=== PATIENT | male | born 1955 | race Native Hawaiian/Other Pacific Islander ===

== ENCOUNTER 2016-04-02 17:11 | Observation (INO) | payer OTHER ==
[~2016-04-02] VITALS: Ht 172.7 cm; Wt 118.6 kg
[~2016-04-02 17:11] MED LIST: ALBU90AE13 INH; ALLO300T23 PO; AMOX875T8 PO; BREO ELLIPTA 101 INH IN; CARDURA4 MG PO; LEVAQUIN750 MG PO; LOTENSIN HCT1 TA1 PO; METF500T PO; PANT40TA PO; SINGULAIR10 MG PO; ZESTRIL30 MG PO; [UNRECOGNIZED DRUG - CODE] PO
[2016-04-02 17:48] VITALS: BP 149/75; TEMP 97.8; Ht 172.7 cm; Wt 118.6 kg
[2016-04-02 17:56] LABS: PLATELET COUNT 285 K/uL (142-355)
[2016-04-02 18:12] LABS: POTASSIUM 3.8 mmol/L (3.6-5.2); SODIUM 137 mmol/L (136-145)
[2016-04-02 20:00] VITALS: BP 107/54; TEMP 98.1
[2016-04-02 21:52] LABS: PARTIAL THROMBOPLASTIN TIME 23.8 SECONDS (24.5-33.6)
[2016-04-02] MEDS ORDERED: RANITIDINE 150150 MG PO (23:37)
[2016-04-02] MEDS ORDERED: INVOKANA300 MG OR (23:37)
[2016-04-02] MEDS ORDERED: DIOVAN HCT160 MG/25 PO (23:38)
[2016-04-02] MEDS ORDERED: ALBU90AE13 INH (23:38)
[2016-04-02] MEDS ORDERED: [UNRECOGNIZED DRUG - OTHER] PO (23:44)
[2016-04-02] MEDS ORDERED: RANO500T PO (23:44)
[2016-04-02] MEDS ORDERED: TIOTROPIUM BROMIDE PO (23:44)
[2016-04-03] VITALS: BP 88/58; TEMP 98
[2016-04-03 04:00] VITALS: BP 82/49; TEMP 97.7
[2016-04-03 06:11] VITALS: BP 82/49; TEMP 97.7
[2016-04-03 08:04] VITALS: BP 120/75; TEMP 97.6
[2016-04-03 10:15] LABS: POTASSIUM 3.5 mmol/L (3.6-5.2); SODIUM 134 mmol/L (136-145)
[2016-04-03 10:48] LABS: PARTIAL THROMBOPLASTIN TIME 25.2 SECONDS (24.5-33.6)
[2016-04-03 10:51] LABS: PLATELET COUNT 243 K/uL (142-355)
[2016-04-03 12:00] VITALS: BP 126/84; TEMP 97.8
== END 2016-04-03 13:50 | disposition short-term general hospital (02) ==
LOC: MED/SURG 17:11
PROVIDERS: ADMIT Family Medicine
DX: R07.89 Other chest pain (principal); R06.02 Shortness of breath; R11.10 Vomiting, unspecified; E13.65 Other specified diabetes mellitus with hyperglycemia; J44.9 Chronic obstructive pulmonary disease, unspecified
CPT/HCPCS: 36415; 36591; 36600; 80053; 82550; 82805; 82948; 84484; 85027; 85610; 85730; 93005; 96367; 96372; 96374; 99220; G0378; G0379; J1650; J1815

== ENCOUNTER 2016-04-03 14:01 | Outpatient (CLI) | payer OTHER ==
[~2016-04-03 14:01] MED LIST changes: +DIOVAN HCT160 MG/25 PO; +INVOKANA300 MG OR; +RANITIDINE 150150 MG PO; +RANO500T PO; +TIOTROPIUM BROMIDE PO; +[UNRECOGNIZED DRUG - OTHER] PO
== END 2016-04-03 15:39 | disposition short-term general hospital (02) ==
LOC: AMB 14:01
DX: R07.89 Other chest pain (principal); R06.02 Shortness of breath; R11.10 Vomiting, unspecified; E13.65 Other specified diabetes mellitus with hyperglycemia; J44.9 Chronic obstructive pulmonary disease, unspecified
CPT/HCPCS: A0425; A0427

== ENCOUNTER 2017-01-21 15:24 | Observation (INO) | payer OTHER ==
[~2017-01-21] VITALS: Ht 157.5 cm; Wt 117.1 kg
[2017-01-21 16:17] VITALS: BP 148/91; TEMP 97.8; BMI 39.1
[2017-01-21 16:23] LABS: PLATELET COUNT 292 K/uL (142-355)
[2017-01-21 16:46] LABS: PARTIAL THROMBOPLASTIN TIME 23.4 SECONDS (24.5-33.6)
[2017-01-21] MEDS ORDERED: CETIRIZINE10 MG PO (16:56)
[2017-01-21] MEDS ORDERED: XYZAL ALLERGY 245 MG PO (16:57)
[2017-01-21] MEDS ORDERED: CARV3.12 PO (16:58)
[2017-01-21 17:01] LABS: POTASSIUM 3.6 mmol/L (3.6-5.2); SODIUM 137 mmol/L (136-145)
[2017-01-21 20:28] VITALS: BP 142/78; TEMP 98.1
[2017-01-22] VITALS (7 sets, daily range): BP systolic 116–136; BP diastolic 60–78; TEMP 97.5–99.7; Ht 157.5 cm; Wt 117.1 kg
[2017-01-22 08:29] LABS: PLATELET COUNT 260 K/uL (142-355)
[2017-01-22 08:42] LABS: POTASSIUM 3.8 mmol/L (3.6-5.2); SODIUM 138 mmol/L (136-145)
[2017-01-23] VITALS: BP 137/86; TEMP 97.6
[2017-01-23 04:00] VITALS: BP 103/65; TEMP 98.1
[2017-01-23 08:00] VITALS: BP 139/79; TEMP 97.5
[2017-01-23 12:27] VITALS: BP 168/90; TEMP 98.8
[2017-01-23 16:00] VITALS: TEMP 98.8
== END 2017-01-23 16:25 | disposition home or self-care (01) ==
LOC: MED/SURG 15:24
PROVIDERS: ADMIT Family Medicine
DX: J01.00 Acute maxillary sinusitis, unspecified (principal); J01.20 Acute ethmoidal sinusitis, unspecified; J44.1 Chronic obstructive pulmonary disease with (acute) exacerbation; E86.0 Dehydration; R06.09 Other forms of dyspnea; I10 Essential (primary) hypertension; R06.02 Shortness of breath; E13.65 Other specified diabetes mellitus with hyperglycemia; J01.81 Other acute recurrent sinusitis; R07.89 Other chest pain
CPT/HCPCS: 36415; 36591; 36600; 80053; 82550; 82805; 82948; 83735; 83880; 84484; 85027; 85610; 85730; 93005; 94760; 96365; 96366; 96367; 96372; 96374; 96375; 99220; G0378; G0379; J1815; J2930

== ENCOUNTER 2018-03-23 16:40 | Outpatient (CLI) | payer OTHER ==
[~2018-03-23 16:40] MED LIST changes: +CARV3.12 PO; +CETIRIZINE10 MG PO; +XYZAL ALLERGY 245 MG PO
== END 2018-03-23 19:39 | disposition home or self-care (01) ==
LOC: RAD 16:40
DX: J12.9 Viral pneumonia, unspecified (principal)

== ENCOUNTER 2018-12-23 12:10 | Outpatient (CLI) | payer OTHER ==
[2018-12-23 12:27] LABS: POTASSIUM 3.7 mmol/L (3.6-5.2)
== END 2018-12-23 21:30 | disposition home or self-care (01) ==
LOC: LABW 12:10
PROVIDERS: Nurse Practitioner Family
DX: R10.84 Generalized abdominal pain (principal)
CPT/HCPCS: 36415; 80053; 82150; 83690

== ENCOUNTER 2019-08-03 10:19 | Outpatient (CLI) | payer OTHER ==
[2019-08-03 10:55] LABS: PLATELET COUNT 247 K/uL (142-355)
== END 2019-08-03 18:58 | disposition home or self-care (01) ==
LOC: LABW 10:19
PROVIDERS: Nurse Practitioner Family
DX: E78.2 Mixed hyperlipidemia (principal); R53.83 Other fatigue; Z12.11 Encounter for screening for malignant neoplasm of colon; E13.65 Other specified diabetes mellitus with hyperglycemia; R05 Cough
CPT/HCPCS: 36415; 80053; 80061; 82306; 82607; 83036; 83880; 84153; 84443; 85027

== ENCOUNTER 2019-08-18 07:47 | Outpatient (CLI) | payer OTHER | END 2019-08-18 18:54 | disposition home or self-care (01) | LOC: CT 07:47 | DX: R06.00 Dyspnea, unspecified (principal) ==

== ENCOUNTER → 2019-08-24 | Outpatient (CLI) | payer OTHER | LOC: RAD 13:02 | DX: J18.9 Pneumonia, unspecified organism (principal) ==

== ENCOUNTER 2019-10-23 15:09 | Outpatient (CLI) | payer OTHER ==
[2019-10-23 15:45] LABS: PLATELET COUNT 268 K/uL (142-355)
== END 2019-10-23 21:31 | disposition home or self-care (01) ==
LOC: RAD 15:09
PROVIDERS: Nurse Practitioner Family
DX: R60.9 Edema, unspecified (principal)
CPT/HCPCS: 36415; 80053; 83880; 85027

== ENCOUNTER 2019-11-10 13:52 | Outpatient (CLI) | payer OTHER | END 2019-11-10 23:17 | disposition home or self-care (01) | LOC: RESP 13:52 | DX: R06.09 Other forms of dyspnea (principal) ==

== ENCOUNTER 2020-01-23 08:43 | Outpatient (CLI) | payer OTHER ==
[2020-01-23 09:17] LABS: PLATELET COUNT 326 K/uL (142-355)
== END 2020-01-23 22:33 | disposition home or self-care (01) ==
LOC: LABW 08:43
PROVIDERS: ATTEND Internal Medicine
DX: E11.9 Type 2 diabetes mellitus without complications (principal); I10 Essential (primary) hypertension; E66.09 Other obesity due to excess calories
CPT/HCPCS: 36415; 80053; 80061; 82043; 82570; 83036; 84439; 84443; 84681; 85027

== ENCOUNTER 2020-04-10 10:43 | Outpatient (CLI) | payer OTHER ==
[2020-04-10 11:35] LABS: POTASSIUM 4.1 mmol/L (3.6-5.2)
== END 2020-04-10 21:47 | disposition home or self-care (01) ==
LOC: LABW 10:43
PROVIDERS: ATTEND Internal Medicine Cardiovascular Disease
DX: R06.02 Shortness of breath (principal); Z79.899 Other long term (current) drug therapy
CPT/HCPCS: 36415; 80048; 83880

== ENCOUNTER 2020-05-14 14:29 | Outpatient (CLI) | payer OTHER ==
[2020-05-14 15:02] LABS: PLATELET COUNT 279 K/uL (142-355)
[2020-05-14 15:03] LABS: POTASSIUM 4.1 mmol/L (3.6-5.2)
== END 2020-05-14 19:27 | disposition home or self-care (01) ==
LOC: LABW 14:29
PROVIDERS: ATTEND Internal Medicine Cardiovascular Disease
DX: Z79.899 Other long term (current) drug therapy (principal)
CPT/HCPCS: 36415; 80053; 83880; 85027

== ENCOUNTER 2020-06-14 11:43 | Emergency (ER) | payer OTHER ==
[~2020-06-14] VITALS: Ht 170.2 cm; Wt 122.0 kg
[2020-06-14 13:40] VITALS: BP 125/72; TEMP 97.9
== END 2020-06-14 13:40 | disposition home or self-care (01) ==
LOC: ED 11:43
DX: S20.211A Contusion of right front wall of thorax, initial encounter (principal); M94.0 Chondrocostal junction syndrome [Tietze]; W10.1XXA Fall (on)(from) sidewalk curb, initial encounter; Y92.89 Other specified places as the place of occurrence of the external cause
CPT/HCPCS: 96372; 99282; J1885

== ENCOUNTER 2020-08-12 12:25 | Outpatient (CLI) | payer OTHER | END 2020-08-12 21:48 | disposition home or self-care (01) | LOC: RAD 12:25 | PROVIDERS: ATTEND Nurse Practitioner Family | DX: R05 Cough (principal) ==

== ENCOUNTER 2020-08-14 09:06 | Outpatient (CLI) | payer OTHER | END 2020-08-14 23:01 | disposition home or self-care (01) | LOC: CT 09:06 | PROVIDERS: ATTEND Nurse Practitioner Primary Care | DX: R10.9 Unspecified abdominal pain (principal) ==

== ENCOUNTER 2020-08-16 08:18 | Outpatient (CLI) | payer OTHER ==
[~2020-08-16] VITALS: Ht 172.7 cm; Wt 131.3 kg
== END 2020-08-16 18:56 | disposition home or self-care (01) ==
LOC: INF 08:18
PROVIDERS: ATTEND Family Medicine
DX: Z23 Encounter for immunization (principal); U07.1 COVID-19
CPT/HCPCS: 96365; Q0239; Q0245

== ENCOUNTER 2020-10-23 14:06 | Outpatient (CLI) | payer OTHER ==
[2020-10-23 15:22] LABS: POTASSIUM 3.6 mmol/L (3.6-5.2)
== END 2020-10-23 21:16 | disposition home or self-care (01) ==
LOC: LABW 14:06
PROVIDERS: ATTEND Internal Medicine Cardiovascular Disease
DX: Z79.899 Other long term (current) drug therapy (principal)
CPT/HCPCS: 36415; 80048; 83880

== ENCOUNTER 2020-11-27 10:07 | Outpatient (CLI) | payer OTHER | END 2020-11-27 20:10 | disposition home or self-care (01) | LOC: LABW 10:07 | PROVIDERS: ATTEND Internal Medicine Cardiovascular Disease | DX: Z79.899 Other long term (current) drug therapy (principal) | CPT/HCPCS: 36415; 80048; 83880 ==

== ENCOUNTER 2021-08-21 09:37 | Outpatient (CLI) | payer BC ==
[2021-08-21 14:33] LABS: POTASSIUM 3.8 mmol/L (3.6-5.2)
== END 2021-08-21 19:15 | disposition home or self-care (01) ==
LOC: RAD 09:37 → LABW 09:37 → RESP 09:37 → LABW 19:15
PROVIDERS: ATTEND Nurse Practitioner Family
DX: R55 Syncope and collapse (principal); R05.3 Chronic cough
CPT/HCPCS: 36415; 80053; 82550; 82553; 83880; 84484; 85379; 93005

== ENCOUNTER 2022-10-22 09:49 | Outpatient (CLI) | payer OTHER ==
[~2022-10-22 09:49] MED LIST changes: +BYSTOLIC5 MG PO; +ENTRESTO 97-1031 TAB PO; +FARXIGA10 MG PO; +FURO40TA93 PO; +HUMALOG KW100 UNIT/M SC; +NITROGLYCER0.2 MG/H1 TD; +NITROSTAT0.4 MG SL; +TRESIBA100 UNIT/M SC
== END 2022-10-22 20:04 | disposition home or self-care (01) ==
LOC: RAD 09:49
PROVIDERS: ATTEND Nurse Practitioner Family
DX: M25.561 Pain in right knee (principal)

== ENCOUNTER 2022-10-28 10:10 | Emergency (ER) | payer OTHER ==
[~2022-10-28] VITALS: Ht 170.2 cm; Wt 126.1 kg
[2022-10-28 10:49] LABS: PLATELET COUNT 251 K/uL (142-355)
[2022-10-28 10:55] LABS: POTASSIUM 3.9 mmol/L (3.6-5.2)
[2022-10-28 11:03] LABS: PARTIAL THROMBOPLASTIN TIME 26.3 SECONDS (23.9-36.7)
[2022-10-28 14:47] VITALS: BP 139/70; TEMP 98.1
== END 2022-10-28 14:45 | disposition still patient (30) ==
LOC: ED 10:15
PROVIDERS: Family Medicine
DX: R55 Syncope and collapse (principal); R07.9 Chest pain, unspecified; E11.9 Type 2 diabetes mellitus without complications; I10 Essential (primary) hypertension; R11.0 Nausea; F17.210 Nicotine dependence, cigarettes, uncomplicated; R06.02 Shortness of breath
CPT/HCPCS: 36600; 80053; 81002; 82550; 82805; 84484; 85027; 85379; 85610; 85730; 93005; 94664; 96374; 99285; J2405

== ENCOUNTER 2022-11-10 09:55 | Outpatient (CLI) | payer OTHER | END 2022-11-10 22:03 | disposition home or self-care (01) | LOC: US 09:55 | PROVIDERS: ATTEND Nurse Practitioner Family | DX: I82.401 Acute embolism and thrombosis of unspecified deep veins of right lower extremity (principal) ==

== ENCOUNTER 2022-11-13 12:42 | Emergency (ER) | payer OTHER ==
[~2022-11-13] VITALS: Ht 170.2 cm; Wt 68.0 kg
[2022-11-13 13:03] VITALS: BP 152/69; TEMP 98
[2022-11-13 13:31] LABS: PLATELET COUNT 252 K/uL (142-355)
[2022-11-13 13:41] LABS: POTASSIUM 4.6 mmol/L (3.6-5.2)
== END 2022-11-13 15:53 | disposition home or self-care (01) ==
LOC: ED 12:42
PROVIDERS: Family Medicine
DX: M25.461 Effusion, right knee (principal); M17.11 Unilateral primary osteoarthritis, right knee; Z86.718 Personal history of other venous thrombosis and embolism; I10 Essential (primary) hypertension; E11.65 Type 2 diabetes mellitus with hyperglycemia; I25.10 Atherosclerotic heart disease of native coronary artery without angina pectoris; I48.91 Unspecified atrial fibrillation; G47.30 Sleep apnea, unspecified; J44.9 Chronic obstructive pulmonary disease, unspecified; E78.5 Hyperlipidemia, unspecified
CPT/HCPCS: 80053; 83880; 85027; 85379; 99283

== ENCOUNTER 2022-12-09 10:47 | Outpatient (CLI) | payer OTHER | END 2022-12-09 19:23 | disposition home or self-care (01) | LOC: MRI 10:47 | PROVIDERS: ATTEND Physician Assistant | DX: S83.231D Complex tear of medial meniscus, current injury, right knee, subsequent encounter (principal); Y92.89 Other specified places as the place of occurrence of the external cause ==